=== PATIENT | female | born 1985 | race Caucasian/White ===

== ENCOUNTER 2017-11-08 19:53 | Emergency (ER) | payer OTHER ==
[~2017-11-08] VITALS: Ht 167.6 cm; Wt 108.9 kg
[2017-11-08] MEDS ORDERED: PREDNISONE 20 M20 MG PO (20:02)
[2017-11-08] MEDS ORDERED: VENTOLIN HFA 1818 GM (20:03)
[2017-11-08] MEDS ORDERED: ZOFRAN ODT4 MG PO (22:40)
[2017-11-08] MEDS ORDERED: ROBAXIN 750 MG750 M1 PO (22:46)
[2017-11-08 22:51] VITALS: BP 110/66
== END 2017-11-08 22:52 | disposition home or self-care (01) ==
LOC: M.ERS 19:53
DX: S06.0X1A Concussion with loss of consciousness of 30 minutes or less, initial encounter (principal); S16.1XXA Strain of muscle, fascia and tendon at neck level, initial encounter; M54.9 Dorsalgia, unspecified; Z91.040 Latex allergy status; Z88.1 Allergy status to other antibiotic agents; Z88.5 Allergy status to narcotic agent; Z88.8 Allergy status to other drugs, medicaments and biological substances; W01.198A Fall on same level from slipping, tripping and stumbling with subsequent striking against other object, initial encounter; Y93.89 Activity, other specified; Y92.89 Other specified places as the place of occurrence of the external cause; Y99.8 Other external cause status